=== PATIENT | female | born 1975 | race Caucasian/White ===

== ENCOUNTER 2019-05-27 10:37 | Emergency (ER) | payer BC ==
[2019-05-27] MEDS ORDERED: KETOROLAC 30 MG/ML VIAL IM ONE (11:00)
--- NOTE | 2019-05-27 11:05 | Emergency Department Record ---
History of Present Illness - General Chief Complaint: Headache Migraine Stated Complaint: HEADACHE Time Seen by Provider: 05/27/19 10:52 Source: Patient Mode of Arrival: Ambulatory Limitations: No limitations - History of Present Illness Initial Comments: The patient is here due to a 2 day hx of a headache. The pain started 2 days ago during the day and gradually slowly worsened. It is an aching pain over the back and front of the head. There is no nausea or vomiting and intermittently mild photophobia but no fever, visual changes, balance issues, neck pain or confusion. The patient does have a hx of headaches but this is different. She did call her doctor but was instructed to come to the and when she went there she was sent to the ER. The patient did drive here with no issues. MD Complaint: Headache Onset/Timin -: Days(s) Onset Description: Gradual Location: Frontal, Occipital Severity: Moderate Severity scale (1-10): 8 Quality: Throbbing Consistency: Constant, Getting worse Improves With: Nothing Worsens With: Noise Associated Symptoms: Sensitivity to sound Treatments Prior to Arrival: Acetaminophen, Ibuprofen, Migraine medication Treatment Prior to Arrival Comment:: Nothing today - Related Data Previous Rx's Medication Instructions Recorded Naproxen [Naprosyn] 500 mg PO BID #14 tablet. 05/27/19 Allergies Allergy/AdvReac Type Severity Reaction Status Date / Time No Known Allergies Allergy PT UNSURE Verified 05/27/19 10:41 OF REACTION Travel/Exposure Screening - Travel/Exposure Within Last 30 Days Have you traveled within the last 30 days?: No - Travel/Exposure Within Last Year Have you traveled outside the [place] in the last year?: No - Additonal Travel/Exposure Details Have you been exposed to anyone with a communicable illness?: No - Travel Symptoms Symptom Screening: None Review of Systems Constitutional: Denies: Chills, Fever Eyes: Denies: Eye discharge ENT: Denies: Congestion Respiratory: Denies: Cough, Dyspnea Past Medical History - SOCIAL HISTORY Smoking Status: Never smoker Alcohol Use: None Drug Use: None - RESPIRATORY Hx Respiratory Disorders: No - CARDIOVASCULAR Hx Cardio Disorders: No - NEURO Hx Neuro Disorders: No - GI Hx GI Disorders: No - Hx Genitourinary Disorders: No - ENDOCRINE Hx Endocrine Disorders: No Comment:: Graves disease 16 years ago with radiation. No issues now - MUSCULOSKELETAL Hx Musculoskeletal Disorders: No - PSYCH Hx Psych Problems: No - HEMATOLOGY/ONCOLOGY Hx Hematology/Oncology Disorders: No Family Medical History Any Significant Family History?: Yes Hx Cancer: Mother, Brother/Sister Hx Diabetes: Father Physical Exam - General General Appearance: Alert, Oriented x3, Cooperative, No acute distress (The patient appears very healthy and nontoxic.) - Head Head exam: Atraumatic, Normocephalic, Normal inspection (There is reproducible t enderness to palpation over the frontal and lateral skull areas bilaterally.) Head exam detail: negative: Tenderness of temporal artery - Eye Eye exam: Normal appearance, PERRL, EOMI, Other (Neg Papilledema.) - ENT Throat exam: Normal inspection. negative: Tonsillar erythema, Tonsillar exudate - Neck Neck exam: Normal inspection, Full ROM. negative: Meningismus (neg for meningismus.), Tenderness - Respiratory Respiratory exam: Normal lung sounds bilaterally. negative: Respiratory distress - Cardiovascular Cardiovascular Exam: Regular rate, Normal rhythm, Normal heart sounds - GI/Abdominal GI/Abdominal exam: Soft, Normal bowel sounds. negative: Tenderness - Extremities Extremities exam: Normal inspection, Full ROM, Normal capillary refill. negative: Tenderness - Neurological Neurological exam: Alert, Normal gait, Oriented X3, Other (Neg Drift and Rhomberg.). negative: Abnormal gait, Altered, Motor sensory deficit - Skin Skin exam: negative: Rash Course Vital Signs 05/27/19 05/27/19 10:41 10:42 Temperature 98.5 F 98.5 F Pulse Rate [ 75 Pulse Ox Probe] Respiratory 18 18 Rate Blood Pressure 126/73 [Right Arm] Pulse Ox 100 100 - Reevaluation(s) Reevaluation #1: The patient appears very comfortable at this time. She is laughing and texting on her phone at this time. 05/27/19 11:12 Reevaluation #2: The patient is feeling better and appears very calm and comfortable. I did order a head CT to R/O tumor due to the gradual MADERA and it was neg. I explained to the patient that she appears very healthy and has had a neg workup. She is to see her PCP later this week for recheck and to return to the ER for any worsening issues. 05/27/19 11:55 Medical Decision Making - Data Complexity MDM Data: Labs Ordered and/or Reviewed, X-Ray Ordered and/or Reviewed - Lab Data Result diagrams: 05/27/19 11:07 05/27/19 11:07 - Radiology Data Radiology results: Report reviewed (Head CT: Neg.) Disposition Disposition: Discharge Clinical Impression: Headache Qualifiers: Headache type: tension-type Headache chronicity pattern: unspecified pattern Intractability: not intractable Qualified Code(s): G44.209 - Tension-type headache, unspecified, not intractable Disposition: Home, Self-Care Condition: (2) Stable Instructions: Acute Headache (ED) Additional Instructions: Please take Naprosyn for pain and you also may use Tylenol. Please see your do ctor later this week for recheck and return to the ER for any worsening issues. Prescriptions: Naproxen [Naprosyn] 500 mg PO BID #14 tablet.dr Forms: Patient Portal Access Time of Disposition: 11:57 Quality - Quality Measures Quality Measures: N/A - Blood Pressure Screening View Details: Yes Does Patient Have Any of the Following: No Blood Pressure Classification: Pre-Hypertensive BP Reading Systolic Measurement: 126 Diastolic Measurement: 73 Screening for High Blood Pressure: < Pre-Hypertensive BP, F/U Documented > [G8950] Pre-Hypertensive Follow-up Interventions: Referral to alternative/primary care provider.
[2019-05-27 11:15] LABS: ABSOLUTE NEUTROPHIL COUNT 2.67; BASO % 0.2 % (0-6); EOS % 1.9 % (0-6); GRAN % 57.3 % (47-80); HEMATOCRIT 38.2 % (35.0-47.0); HEMOGLOBIN 12.8 gm/dl (11.6-16.0); LYMPH % 30.7 % (16-45); MEAN CELL VOLUME 84.3 fl (81-97); MEAN CORPUSCULAR HEMOGLOBIN 28.3 pg (27-33); MEAN CORPUSCULAR HGB CONC 33.5 g/dl (32-36); MEAN PLATELET VOLUME 9.5 fl (7.4-10.4); MONO % 9.9 % (0-9); PLATELET COUNT 297 K/uL (130-400); RED BLOOD COUNT 4.53 M/uL (3.80-5.40); RED CELL DISTRIBUTION WIDTH 14.5 % (11.5-14.5); WHITE BLOOD COUNT W/O DIFF 4.7 K/uL (4.2-12.2)
[2019-05-27 11:28] LABS: BLOOD UREA NITROGEN 16 mg/dL (6-20); CREATININE 0.8 mg/dL (0.5-0.9); EST GLOMERULAR FILTRATION RATE > 60 mL/min
[2019-05-27 11:29] LABS: TOTAL PROTEIN 7.4 g/dL (6.6-8.7)
[2019-05-27 11:31] LABS: GLUCOSE,RANDOM 110 mg/dL (74-109)
[2019-05-27 11:33] LABS: ALB/GLOB RATIO 1.3 (1.1-1.8); ALBUMIN 4.2 g/dL (4.0-5.0); ALT/SGPT 15 U/L (<33); AST/SGOT 13 U/L (10.0-35.0)
[2019-05-27 11:34] LABS: ALKALINE PHOSPHATASE 71 U/L (35-104); C-REACTIVE PROTEIN 1.47 mg/dL (<0.5)
--- NOTE | 2019-05-27 11:39 | CT SCAN REPORT ---
EXAMINATION: CT Head without IV Contrast EXAM DATE: 05/27/2019 11:23 AM TECHNIQUE: Standard protocol CT images of the head were obtained without intravenous contrast. Frances l and sagittal reconstructed images were created. INDICATION: MADERA COMPARISON: None HAND DOMINANCE: Unknown. ENCOUNTER: Not applicable FINDINGS: 1. There is no intracranial mass, midline shift, extraaxial fluid collection or hemorrhage. 2. The ventricles, sulci and cisterns are normal. 3. There are no suspicious area of altered attenuation. 4. There is no fracture. 5. The visualized aspects of the orbits, paranasal sinuses, and mastoid air cells are normal. IMPRESSION: No acute intracranial abnormality. Dictated by: Wero Ham MD on 05/27/2019 11:35 AM. .
== END 2019-05-27 12:11 | disposition home or self-care (01) ==
LOC: ER 10:37
DX: G44.209 Tension-type headache, unspecified, not intractable (principal); H53.149 Visual discomfort, unspecified
CPT/HCPCS: 70450; 80053; 85025; 86140; 96372; 99284; J1885